=== PATIENT | male | born 1965 | race Caucasian/White ===

== ENCOUNTER 2019-09-09 12:46 | Outpatient (RCR) | payer OTHER ==
[~2019-09-09 12:46] MED LIST: CLARINEX 5MG5 MG PO; MULTIPLE VITAMI1 CAP PO
== END 2019-12-08 | disposition still patient (30) ==
LOC: WSST
DX: R13.14 Dysphagia, pharyngoesophageal phase (principal)

== ENCOUNTER → 2019-09-17 | Outpatient (CLI) | payer OTHER | LOC: COL.RAD 15:18 | DX: R13.10 Dysphagia, unspecified (principal) ==

== ENCOUNTER 2022-01-29 19:05 | Emergency (ER) | payer OTHER ==
[~2022-01-29] VITALS: Ht 177.8 cm; Wt 89.1 kg
[2022-01-29 19:12] VITALS: TEMP 97.8
[2022-01-29] MEDS ORDERED: COZAAR100 MG PO (19:15)
[2022-01-29] MEDS ORDERED: ZANAFLEX CAPSULE4 MG PO (20:44)
[2022-01-29 21:00] VITALS: BP 127/92; PULSE 60
== END 2022-01-29 21:00 | disposition home or self-care (01) ==
LOC: COL.ER 19:05
DX: S29.011A Strain of muscle and tendon of front wall of thorax, initial encounter (principal); X50.1XXA Overexertion from prolonged static or awkward postures, initial encounter
CPT/HCPCS: J1885